=== PATIENT | female | born 1960 | race Caucasian/White ===

== ENCOUNTER 2018-12-02 17:52 | Emergency (ER) | payer MEDICAID ==
[~2018-12-02] VITALS: Ht 152.4 cm; Wt 65.0 kg
[2018-12-02 18:16] VITALS: BP 135/71
[2018-12-02] MEDS ORDERED: OMEP40CA13 PO (19:08)
== END 2018-12-02 19:21 | disposition home or self-care (01) ==
LOC: ER 17:54
DX: R05 Cough (principal); M79.645 Pain in left finger(s); F17.200 Nicotine dependence, unspecified, uncomplicated; I10 Essential (primary) hypertension; Z79.899 Other long term (current) drug therapy
CPT/HCPCS: 99282